=== PATIENT | female | born 1940 | race Hispanic/Latino ===

== ENCOUNTER 2018-07-24 07:13 | Outpatient (CLI) | payer MEDICARE ==
--- NOTE | 2018-07-24 14:27 | PET Report ---
PET/CT:07/24/18 07:13:00 CLINICAL: Pulmonary nodule RADIOPHARMACEUTICAL: 12.637mCi F18-FDG. COMPARISON: None. TECHNIQUE- Following intravenous injection of F-18 FDG and an approximately 60 minute uptake period, CT and PET images from the mid skull to the upper thighs were acquired with the patient in the fasted state. No contrast was administered. The CT protocol used for this PET CT study is designed for attenuation correction and anatomic localization of PET abnormalities. This certified medication technician CT is not desired to produce and cannot replace, [id number] diagnostic CT scans with specific imaging protocols for different body parts and indications. Plasma glucose at the time of this test: 99g/dl. The standardized uptake values (SUV) are normalized to patient body weight and indicate the highest activity concentration (SUV max) in a given disease site. FINDINGS: Brain--Physiologic FDG uptake in the visualized regions of the brain. Neck--Physiologic FDG uptake in mucosal structures. No mass or lymphadenopathy. Chest--Physiologic FDG uptake in mediastinal blood pool and myocardium. Lungs--No abnormal uptake. A 3 mm non-FDG avid right lower lobe noncalcified lung nodule and a 2 mm non-FDG avid right lower lobe noncalcified lung nodule. No other lung nodules. No mass. Mild emphysema. Pleura/pericardium--No abnormal uptake. Thoracic nodes--No abnormal uptake. Hepatobiliary--No abnormal uptake. Liver background SUV mean, as a reference for comparing FDG studies, is 4.7 . No liver mass. Spleen--No abnormal uptake. Pancreas--No abnormal uptake. Adrenal Glands--No abnormal uptake. Kidneys/Ureters/Bladder--No abnormal uptake. Abdominopelvic Nodes--No abnormal uptake. Bowel/Peritoneum/Mesentery--No abnormal uptake. Physiologic uptake in the cecum. Pelvic organs--No abnormal uptake. Bones/Soft Tissues--No abnormal uptake. IMPRESSION- Two tiny non-FDG avid noncalcified right lower lobe lung nodules which are probably benign. Recommend CT followup if there is a history of cancer or if there is a high risk of cancer.
== END 2018-07-24 07:14 | disposition home or self-care (01) ==
LOC: PET 07:13
PROVIDERS: ATTEND Internal Medicine
DX: R91.1 Solitary pulmonary nodule (principal); J43.9 Emphysema, unspecified; I10 Essential (primary) hypertension; E78.5 Hyperlipidemia, unspecified; E78.00 Pure hypercholesterolemia, unspecified; K21.9 Gastro-esophageal reflux disease without esophagitis; Z90.710 Acquired absence of both cervix and uterus
CPT/HCPCS: 78815; 82962; A9552

== ENCOUNTER 2018-12-23 09:45 | Day surgery (SDC) | payer MEDICARE ==
[~2018-12-23 09:45] MED LIST: SODIUM CHLORIDE 0.9% 1000 ML 1,000 ML IV SCH
--- NOTE | 2018-12-23 11:11 | Anesthesia Day of Surgery ---
Anesthesia Day of Surgery - Day of Surgery Patient Examined: Yes Patient H&P Reviewed: Yes Patient is NPO: Yes Beta Blockers: Yes
--- NOTE | 2018-12-23 11:11 | Anesthesia Consultation ---
Anesthesia Consult and Med Hx Date of service: 12/23/18 - Airway Anesthetic Teeth Evaluation: Edentulous ROM Head & Neck: Adequate Mental/Hyoid Distance: Inadequate Mallampati Class: Class I Intubation Access Assessment: Good - Pulmonary Exam CTA: Yes - Cardiac Exam Cardiac Exam: RRR - Pre-Operative Health Status ASA Pre-Surgery Classification: ASA3 Proposed Anesthetic Plan: MAC - Pulmonary Hx Smoking: Yes (30pk yr hx) COPD: Yes Home Oxygen Therapy: No - Cardiovascular System Hx Hypertension: Yes (1997) Hx Coronary Artery Disease: Yes (s/p stents; last saw cardiology 1 month ago) Hx Heart Attack/AMI: Yes (2010) Hx Angina: No Hx Percutaneous Transluminal Coronary Angioplasty (PTCA): Yes (x2 2010) Hx Cardia Arrhythmia: Yes (sick sinus syndrome) Hx Pacemaker: Yes - Central Nervous System CVA: No - Gastrointestinal Hx Gastroesophageal Reflux Disease: Yes - Endocrine Hx Renal Disease: No Hx Liver Disease: No Hx Insulin Dependent Diabetes: No Hx Non-Insulin Dependent Diabetes: No Hx Thyroid Disease: No - Other Systems Hx Obesity: No
[2018-12-23] MEDS ORDERED: PROPOFOL 200 MG/20 ML VIAL IV ONE (12:25)
[2018-12-23] MEDS ORDERED: LIDOCAINE (2%) 20 MG/1 ML VIAL 20 ML MDV INFILTRATI ONE (12:34)
[2018-12-23] MEDS ORDERED: WATER FOR IRRIG STERILE 250 ML BOTTLE IR ONE (12:34)
--- NOTE | 2018-12-23 13:11 | Short Stay Summary ---
Short Stay Documentation Date of service: 12/23/18 Narrative H&P: The patient presents for EGD with dilation for dysphagia and for surveillance colonoscopy due to history of polyps. Last colonoscopy about 5 years ago. - History Past Medical History: anemia, COPD, other (History of bradycardia requiring pacemaker, mild CKD) Past Surgical History: cholecystectomy, hysterectomy Social history: no significant social history, smoking - Allergies and Medications Current Medications: Allergies codeine Allergy (Verified 07/30/13 11:29) Itching hydrocodone bitartrate [From Vicodin] Allergy (Verified 08/25/13 08:35) Itching iodine Allergy (Verified 02/19/17 11:20) Itching iron Allergy (Verified 07/30/13 11:28) Itching Home Medications Medication Instructions Recorded Confirmed Last Taken Type Albuterol Sulfate [Ventolin HFA] 1 each IH QID 07/30/13 02/20/17 1 Day Ago History ~02/19/17 Aspirin EC [Halfprin EC] 81 mg PO DAILY 07/30/13 02/20/17 1 Day Ago History ~02/19/17 Carvedilol [Coreg] 6.25 mg PO BID 07/30/13 02/20/17 1 Day Ago History ~02/19/17 Fluticasone/Salmeterol [Advair 1 each PO BID 07/30/13 02/20/17 1 Day Ago History Diskus 250-50 mcg] ~02/19/17 Isosorbide Mononitrate [Isosorbide 30 mg PO DAILY 07/30/13 02/20/17 1 Day Ago History Mononitrate ER] ~02/19/17 Nitroglycerin [Nitrostat] 0.4 mg SL PRN PRN 07/30/13 02/20/17 03/16/13 History Rosuvastatin (Nf) [Crestor] 5 mg PO DAILY 07/30/13 02/20/17 1 Day Ago History ~02/19/17 Lisinopril [Zestril TAB] 20 mg PO QDAY #30 tablet 08/27/14 02/20/17 1 Day Ago Rx ~02/19/17 Active Medications Sodium Chloride (Nacl 0.9% 1000 Ml) 1,000 mls @ 50 mls/hr IV DIRECT JAC Last Admin: 12/23/18 11:36 Dose: 50 mls/hr Documented by: - Physical exam General appearance: no acute distress, well-nourished Integumentary: no rash, no growths, no abnormal pigmentation HEENT: Atraumatic, PERRLA, EOMI, Mucous membr. moist/pink Lungs: Clear to auscultation, Normal air movement Breasts: deferred Heart: Regular rate, Normal S1, Normal S2, No murmurs Gastrointestinal: normoactive bowel sounds, no tenderness, no distended, no masses, no guarding, no organomegaly Female Genitourinary: deferred Rectal Exam: normal exam-external/orifice, normal rectal tone, no mass Extremities: no ischemia, pulses intact, pulses symmetrical, No edema, normal temperature, normal color, Full ROM Neurological: Normal gait, Normal speech, Strength at 5/5 X4 ext, Normal tone, Sensation intact, Cranial nerves 3-12 NL - Brief post op/procedure progress note Date of procedure: 12/23/18 Findings: see dictations Estimated blood loss: none Pathology: list (rectal polyp) Specimen disposition: to lab Condition: stable - Disposition Condition at discharge: Good Disposition: DC-01 TO HOME OR SELFCARE - Discharge Diagnoses (1) Dysphagia Status: Acute (2) History of colon polyps Status: Acute Short Stay Discharge Plan Activity: other (No driving for 24 hours. ) Diet: other (Full liquids for 24 hours, then advance as tolerated.) Follow up with: RUDY MORA MD [Primary Care Provider] - 7 Days
--- NOTE | 2018-12-23 13:18 | Operative Report ---
Operative Report Operative Report: Date of procedure: 12/23/2018 Procedure: Esophagogastroduodenoscopy with balloon dilation of the esophagus to 16.5 mm Preprocedure diagnosis: Dysphagia to solid foods with a history of prior dilation of an esophageal stricture. Post procedure diagnosis: Long, smooth, benign-appearing stricture in the distal third of the esophagus. Endoscopist: Dr. Craven Anesthesia: Monitored anesthesia care per anesthesia department Medications: Propofol per anesthesia. Estimated blood loss: 0 After careful discussion of the nature and purpose of the procedure as well as details the technique risks benefits and alternatives consent was obtained. The patient was placed in the left lateral decubitus position and medicated per anesthesia. The tip of the Olympus video scope was passed per orum under direct vision into the esophagus and advanced into the stomach and descending duodenum. The descending duodenum the duodenal bulb and pylorus were symmetrical and normal. The scope was withdrawn into the stomach and the stomach then gently insufflated with air. The antrum was normal. The stomach was further insufflated and the scope was then retroflexed and partially withdrawn. The cardia, fundus, and body of the stomach were within normal limits and easily distensible.The scope was then withdrawn in the forward position. The esophagogastric junction was at 38 cm. There was a smooth stricture approximately 3-4 cm in length in the distal third of the esophagus. There was no resistance to passage of the scope initially. Dilation was performed with a balloon, initially at 15 mm followed by increasing the balloon size to 16.5 mm. A superficial rent be seen involving through the balloon and it was elected to conclude dilation at this level. The esophageal body was otherwise normal throughout. The procedure was was well tolerated and the patient was observed in recovery. Impressions: Smooths, benign-appearing stricture in the distal third of the esophagus. Stricture is likely reflux related. Status post balloon dilation to 16.5 mm. Controlled trauma of the esophagus was observed although no bleeding. Plan: Full liquid diet for 24 hours then advanced as tolerated. Repeat dilation as needed in the future. Acid suppression therapy. Office follow-up in 2-3 months. Electronically signed: Michael Craven MD
--- NOTE | 2018-12-23 13:20 | Operative Report ---
Operative Report Operative Report: Date of procedure: 12/23/2018 Preprocedure diagnosis: History of colon polyps Post procedure diagnosis: Left colon diverticulosis, no recurrent polyps. Procedure: Colonoscopy to the cecum Endoscopist: Dr. Craven Anesthesia: Monitored anesthesia care per anesthesia department Estimated blood loss: 0 Medications: Monitored anesthesia care. See separate report by anesthesia for details. After careful discussion of the nature and purpose of the procedure as well as details of the technique risks benefits and alternatives the patient gave consent. Please see recent history and physical from the office. The patient was placed in the left lateral decubitus position and medicated per anesthesia. A rectal exam was performed sphincter tone was normal there were no masses palpable. The Olympus colonoscope was passed transanally and advanced under continuous direct vision without difficulty to the cecum. The colon was well prepared. The cecum was normal. The ascending colon was normal and on forward and retroflexed views. The transverse colon was normal. There were scattered diverticula in the descending and sigmoid colon. The rectum was normal on forward and retroflexed views. The procedure was well-tolerated overall and the patient was observed in recovery. Conclusions: Diverticulosis of the left colon otherwise normal study with no recurrent polyps. Plan: Consider repeat colonoscopy in 5 years if the patient remains in good health. Signed electronically: Michael Craven M.D.
[2018-12-23 13:45] VITALS: BP 129/55
--- NOTE | 2018-12-23 13:46 | Post Anesthesia Evaluation ---
- Post Anesthesia Evaluation Patient Participated: Yes Airway Patent: Yes Stable Respiratory Function: Yes Nausea/Vomiting: No Temp > 96.8F: Yes Pain Manageable: Yes Adequeate Hydration: Yes Anesthesia Complications: No Block Receding Appropriately: Not Applicable Patient on Ventilator: No
== END 2018-12-23 09:46 | disposition home or self-care (01) ==
LOC: GIO 09:45
PROVIDERS: ATTEND Internal Medicine Gastroenterology
DX: Z12.11 Encounter for screening for malignant neoplasm of colon (principal); K62.1 Rectal polyp; K22.2 Esophageal obstruction; R13.10 Dysphagia, unspecified; J44.9 Chronic obstructive pulmonary disease, unspecified; I12.9 Hypertensive chronic kidney disease with stage 1 through stage 4 chronic kidney disease, or unspecified chronic kidney disease; K57.30 Diverticulosis of large intestine without perforation or abscess without bleeding; N18.9 Chronic kidney disease, unspecified; I25.10 Atherosclerotic heart disease of native coronary artery without angina pectoris; E78.00 Pure hypercholesterolemia, unspecified; F17.210 Nicotine dependence, cigarettes, uncomplicated; E78.5 Hyperlipidemia, unspecified; K21.9 Gastro-esophageal reflux disease without esophagitis; Z98.51 Tubal ligation status; Z87.442 Personal history of urinary calculi; Z98.890 Other specified postprocedural states; Z95.5 Presence of coronary angioplasty implant and graft; Z95.0 Presence of cardiac pacemaker; Z90.49 Acquired absence of other specified parts of digestive tract; Z90.710 Acquired absence of both cervix and uterus; Z88.5 Allergy status to narcotic agent; Z91.041 Radiographic dye allergy status; Z86.010 Personal history of colon polyps; Z98.41 Cataract extraction status, right eye; Z98.42 Cataract extraction status, left eye; Z79.899 Other long term (current) drug therapy
CPT/HCPCS: 43249; 45385; 82962; 88305; C1726; J2704; J7030

== ENCOUNTER 2019-03-27 21:50 | Inpatient (IN) | payer MEDICARE ==
--- NOTE | 2019-03-27 22:31 | Event Note ---
ED Screening Note Date of service: 03/27/19 Time: 22:28 ED Screening Note: 78 y/o female comes in for BEOT this evening about 630pm. Has a history of COPD. Does not use oxygen at home. Has a Headache. This initial assessment/diagnostic orders/clinical plan/treatment(s) is/are subject to change based on patients health status, clinical progression and re- assessment by fellow clinical providers in the ED. Further treatment and workup at subsequent clinical providers discretion. Patient/guardian urged not to elope from the ED as their condition may be serious if not clinically assessed and managed. Initial orders include:
--- NOTE | 2019-03-27 23:16 | XRay Report ---
CHEST 2 VIEWS INDICATION / CLINICAL INFORMATION: sob,cough and rales. COMPARISON: 02/19/2017 FINDINGS: SUPPORT DEVICES: Pacemaker appears unchanged HEART / MEDIASTINUM: Atherosclerotic calcifications are noted in the aortic arch. LUNGS / PLEURA: No significant pulmonary or pleural abnormality. .No pneumothorax. ADDITIONAL FINDINGS: No significant additional findings. IMPRESSION: 1. No acute findings. Signer Name: Cuba Caba MD Signed: 03/27/2019 11:12 PM Workstation Name: [id number]
[2019-03-27 23:33] LABS: Basophils % (Auto) 0.3 % (0.0-1.8); Eosinophils # (Auto) 0.3 K/mm3 (0.0-0.4); Eosinophils % (Auto) 2.5 % (0.0-4.3); Hematocrit 41.1 % (30.3-42.9); Hemoglobin 13.4 gm/dl (10.1-14.3); Lymphocytes # (Auto) 1.1 K/mm3 (1.2-5.4); Lymphocytes % (Auto) 11.1 % (13.4-35.0); Mean Corpuscular HGB Conc 33 % (30-34); Mean Corpuscular Volume 100 fl (79-97); Monocytes # (Auto) 0.5 K/mm3 (0.0-0.8); Monocytes % (Auto) 5.1 % (0.0-7.3); Platelet Count 275 K/mm3 (140-440); Red Blood Count 4.12 M/mm3 (3.65-5.03); Red Cell Distribution Width 14.7 % (13.2-15.2)
[2019-03-27 23:56] LABS: Albumin 4.6 g/dL (3.9-5); Calcium 10.8 mg/dL (8.4-10.2)
[2019-03-28] MEDS ORDERED: MAGNESIUM SULFATE 2 GM/50 ML BAG IV ONE (01:26)
[2019-03-28] MEDS ORDERED: methylPREDNISolone Sod Succinate 125 MG/2 ML INJ IV ONE (01:26)
[2019-03-28] MEDS ORDERED: IPRATROPIUM/ALBUTEROL SULFATE 3 ML AMPUL.NEB IH ONE (01:27)
--- NOTE | 2019-03-28 01:30 | Emergency Department Report ---
ED Shortness of Breath HPI - General Chief Complaint: Dyspnea/Respdistress Stated Complaint: BETO Time Seen by Provider: 03/28/19 01:15 Source: patient Mode of arrival: Ambulatory Limitations: No Limitations - History of Present Illness Initial Comments: Patient is a 78-year-old female that presents emergency room with shortness of breath x4 hours. Patient states she feels like her COPD is acting up. Patient states she is currently on antibiotics for a UTI. Patient states she has a past medical history of COPD, IA, hypertension, asthma, coronary stents, pacer. Patient states that her symptoms are worsening. Patient states she has been taking her home treatments and nothing is working. Patient states that her shortness of breath is better with rest and worse with exertion. Patient denies fever and chills. Patient denies chest pain. Patient denies nausea vomiting. MD Complaint: shortness of breath, cough -: Sudden Severity: severe Pain Scale: 0 Consistency: constant Improves With: oxygen, rest, bronchodilators Worsens With: exertion Known History Of: COPD, asthma Associated Symptoms: cough Treatments Prior to Arrival: bronchodilator - Related Data Home Oxygen Therapy: No Home Medications Medication Instructions Recorded Confirmed Last Taken Albuterol Sulfate [Ventolin HFA] 1 each IH QID 07/30/13 02/20/17 1 Day Ago ~02/19/17 Aspirin EC [Halfprin EC] 81 mg PO DAILY 07/30/13 02/20/17 1 Day Ago ~02/19/17 Fluticasone/Salmeterol [Advair 1 each PO BID 07/30/13 02/20/17 1 Day Ago Diskus 250-50 mcg] ~02/19/17 Isosorbide Mononitrate [Isosorbide 30 mg PO DAILY 07/30/13 02/20/17 1 Day Ago Mononitrate ER] ~02/19/17 Nitroglycerin [Nitrostat] 0.4 mg SL PRN PRN 07/30/13 02/20/17 03/16/13 Rosuvastatin (Nf) [Crestor] 5 mg PO DAILY 07/30/13 02/20/17 1 Day Ago ~02/19/17 carvediloL [Coreg] 6.25 mg PO BID 07/30/13 02/20/17 1 Day Ago ~02/19/17 Previous Rx's Medication Instructions Recorded Last Taken Type lisinopriL [Zestril TAB] 20 mg PO QDAY #30 tablet 08/27/14 1 Day Ago Rx ~02/19/17 Allergies Allergy/AdvReac Type Severity Reaction Status Date / Time codeine Allergy Itching Verified 07/30/13 11:29 hydrocodone bitartrate Allergy Itching Verified 08/25/13 08:35 [From Vicodin] iodine Allergy Itching Verified 02/19/17 11:20 iron Allergy Itching Verified 07/30/13 11:28 ED Review of Systems ROS: Stated complaint: BETO Other details as noted in HPI Constitutional: denies: chills, fever Eyes: denies: eye pain, eye discharge, vision change ENT: denies: ear pain, throat pain Respiratory: cough, shortness of breath, SOB with exertion, SOB at rest, wheezing Cardiovascular: denies: chest pain, palpitations Endocrine: no symptoms reported Gastrointestinal: denies: abdominal pain, nausea, diarrhea Genitourinary: denies: urgency, dysuria, discharge Musculoskeletal: denies: back pain, joint swelling, arthralgia Skin: denies: rash, lesions Neurological: denies: headache, weakness, paresthesias Psychiatric: denies: anxiety, depression Hematological/Lymphatic: denies: easy bleeding, easy bruising ED Past Medical Hx - Past Medical History Previous Medical History?: Yes Hx Hypertension: Yes (1997) Hx Heart Attack/AMI: Yes (2010) Hx Liver Disease: No Hx Renal Disease: No Hx Kidney Stones: Yes Hx Asthma: Yes Hx COPD: Yes Additional medical history: high cholosterol - Surgical History Hx Coronary Stent: Yes (X 2 2011) Hx Pacemaker: Yes Hx Cholecystectomy: Yes Hx Appendectomy: Yes Additional Surgical History: pacemaker 2012, stents x 2 10/2010. eye implants - Social History Smoking Status: Current Every Day Smoker Substance Use Type: None - Medications Home Medications: Home Medications Medication Instructions Recorded Confirmed Last Taken Type Albuterol Sulfate [Ventolin HFA] 1 each IH QID 07/30/13 02/20/17 1 Day Ago History ~02/19/17 Aspirin EC [Halfprin EC] 81 mg PO DAILY 07/30/13 02/20/17 1 Day Ago History ~02/19/17 Fluticasone/Salmeterol [Advair 1 each PO BID 07/30/13 02/20/17 1 Day Ago History Diskus 250-50 mcg] ~02/19/17 Isosorbide Mononitrate [Isosorbide 30 mg PO DAILY 07/30/13 02/20/17 1 Day Ago History Mononitrate ER] ~02/19/17 Nitroglycerin [Nitrostat] 0.4 mg SL PRN PRN 07/30/13 02/20/17 03/16/13 History Rosuvastatin (Nf) [Crestor] 5 mg PO DAILY 07/30/13 02/20/17 1 Day Ago History ~02/19/17 carvediloL [Coreg] 6.25 mg PO BID 07/30/13 02/20/17 1 Day Ago History ~02/19/17 lisinopriL [Zestril TAB] 20 mg PO QDAY #30 tablet 08/27/14 02/20/17 1 Day Ago Rx ~02/19/17 ED Physical Exam - General Limitations: No Limitations General appearance: alert, in distress - Head Head exam: Present: atraumatic, normocephalic - Eye Eye exam: Present: normal appearance - ENT ENT exam: Present: mucous membranes moist - Neck Neck exam: Present: normal inspection - Respiratory Respiratory exam: Present: respiratory distress, wheezes, decreased breath sounds - Cardiovascular Cardiovascular Exam: Present: regular rate, normal rhythm. Absent: systolic murmur, diastolic murmur, rubs, gallop - GI/Abdominal GI/Abdominal exam: Present: soft, normal bowel sounds. Absent: distended, tenderness, guarding - Rectal Rectal exam: Present: deferred - Extremities Exam Extremities exam: Present: normal inspection - Back Exam Back exam: Present: normal inspection - Neurological Exam Neurological exam: Present: alert, oriented X3 - Psychiatric Psychiatric exam: Present: normal affect, normal mood - Skin Skin exam: Present: warm, dry, intact, normal color. Absent: rash ED Course Vital Signs 03/27/19 03/27/19 03/27/19 22:16 22:17 22:19 Temperature 98.5 F Pulse Rate 65 65 65 Pulse Rate [ Anterior] Respiratory 16 Rate Respiratory Rate [Anterior] Blood Pressure 192/75 O2 Sat by Pulse 89 90 91 Oximetry 03/28/19 03/28/19 01:46 02:13 Temperature Pulse Rate 67 Pulse Rate [ 77 Anterior] Respiratory 14 Rate Respiratory 17 Rate [Anterior] Blood Pressure O2 Sat by Pulse Oximetry - Reevaluation(s) Reevaluation #1: Initial evaluation done. 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 Patient will be given DuoNeb, Solu-Medrol, magnesium run. 03/28/19 01:15 Reevaluation #2: I discussed all results with patient. I discussed plan of care with patient. Patient agrees with plan of care and admission. Patient to be admitted to the hospitalist service. Patient still wheezing and hypoxic. 03/28/19 02:41 - Consultations Consultation #1: Hospitalist consulted for admission. Hospitalist admit patient. 03/28/19 02:41 ED Medical Decision Making - Lab Data Result diagrams: 03/27/19 23:02 03/27/19 23:02 - Radiology Data Radiology results: report reviewed, image reviewed No acute findings on x-ray - Medical Decision Making Patient is a 78-year-old female that presents emergency room for shortness of breath and difficulty in breathing. Patient clinical findings consistent with COPD exacerbation. Patient required multiple medications and continues to w heeze and be hypoxic. Patient admitted to the hospitalist service for further evaluation and treatment. Patient given magnesium, Solu-Medrol and duo nebs. Patient placed on oxygen for hypoxia. Patient's chest x-ray negative. Patient's labs unremarkable. - Differential Diagnosis COPD, COPD exacerbation, hypoxia, shortness of breath, BETO Critical Care Time: Yes Critical care time in (mins) excluding proc time.: 35 Critical care attestation.: If time is entered above; I have spent that time in minutes in the direct care of this critically ill patient, excluding procedure time. Critical Care Time: 35 minutes ED Disposition Clinical Impression: Hypoxia, SOB (shortness of breath), COPD exacerbation Disposition: OP ADMIT IP TO THIS HOSP Is pt being admited?: Yes Does the pt Need Aspirin: No Condition: Critical Time of Disposition: 02:44
[2019-03-28] MEDS ORDERED: ACETAMINOPHEN 325 MG TAB PO PRN (03:39)
[2019-03-28] MEDS ORDERED: ONDANSETRON 4 MG/2 ML INJ IV PRN (03:39)
[2019-03-28] MEDS ORDERED: SODIUM CHLORIDE 0.9% 1000 ML 1,000 ML IV SCH (03:45)
--- NOTE | 2019-03-28 03:50 | History and Physical Report ---
History of Present Illness Date of examination: 03/28/19 Chief complaint: Worsening shortness of breath since yesterday History of present illness: Baylee Norton is a 78-year-old female that presents to the emergency room with shortness of breath last night. Patient states she feels like her COPD is acting up. Patient states she is currently on antibiotics for a UTI (states she took 1 tablet so far as this was prescribed by Dr. Alfred Poe only yesterday). Patient states she has a past medical history of COPD, NC, hypertension, asthma, coronary stents, PPM. Patient states that her symptoms are worsening. she has been taking her home neb. treatments and nothing is working. Patient states that her shortness of breath is better with rest and worse with exertion. Patient denies fever and chills. Patient denies chest pain. Patient denies nausea vomiting. She does complain of urinary frequency and dysuria and chronic lower back pain but denies any flank pain. patient is being admitted for further management of her COPD exacerbation Past History Past Medical History: CAD, COPD, hypertension, hyperlipidemia, other (Chronic lower back pain) Past Surgical History: appendectomy, cholecystectomy, cataract removal, PTCA Social history: smoking Family history: CAD, diabetes, hypertension Medications and Allergies Allergies Allergy/AdvReac Type Severity Reaction Status Date / Time codeine Allergy Itching Verified 07/30/13 11:29 hydrocodone bitartrate Allergy Itching Verified 08/25/13 08:35 [From Vicodin] iodine Allergy Itching Verified 02/19/17 11:20 iron Allergy Itching Verified 07/30/13 11:28 Home Medications Medication Instructions Recorded Confirmed Last Taken Type Albuterol Sulfate [Ventolin HFA] 1 each IH QID 07/30/13 02/20/17 1 Day Ago History ~02/19/17 Aspirin EC [Halfprin EC] 81 mg PO DAILY 07/30/13 02/20/17 1 Day Ago History ~02/19/17 Fluticasone/Salmeterol [Advair 1 each PO BID 07/30/13 02/20/17 1 Day Ago History Diskus 250-50 mcg] ~02/19/17 Isosorbide Mononitrate [Isosorbide 30 mg PO DAILY 07/30/13 02/20/17 1 Day Ago History Mononitrate ER] ~02/19/17 Nitroglycerin [Nitrostat] 0.4 mg SL PRN PRN 07/30/13 02/20/17 03/16/13 History Rosuvastatin (Nf) [Crestor] 5 mg PO DAILY 07/30/13 02/20/17 1 Day Ago History ~02/19/17 carvediloL [Coreg] 6.25 mg PO BID 07/30/13 02/20/17 1 Day Ago History ~02/19/17 lisinopriL [Zestril TAB] 20 mg PO QDAY #30 tablet 08/27/14 02/20/17 1 Day Ago Rx ~02/19/17 Active Meds: Active Medications Acetaminophen (Tylenol) 650 mg PO Q4H PRN PRN Reason: Pain MILD(1-3)/Fever >100.5/ROTH Albuterol/Ipratropium (Duoneb *Not For Prn Use*) 1 ampul IH Q6HRT [facility] Aspirin (Halfprin Ec) 81 mg PO DAILY [facility] Atorvastatin Calcium (Lipitor) 10 mg PO QHS [facility] Budesonide (Pulmicort) 0.5 mg IH Q12HRT [facility] Carvedilol (Coreg) 6.25 mg PO BID [facility] Famotidine (Pepcid) 20 mg PO BID [facility] Heparin Sodium (Porcine) (Heparin) 5,000 unit SUB-Q Q8HR [facility] Hydralazine HCl (Apresoline) 10 mg IV Q6H PRN PRN Reason: Hypertension Sodium Chloride (Nacl 0.9% 1000 Ml) 1,000 mls @ 75 mls/hr IV DIRECT [facility] Methylprednisolone Sodium Succinate 80 mg/ Sodium Chloride 100 mls @ 200 mls/hr IV Q8H [facility] Ceftriaxone Sodium (Rocephin/Ns 1 Gm/50 Ml) 1 gm in 50 mls @ 100 mls/hr IV Q24HR [facility]; Protocol Isosorbide Mononitrate (Imdur) 30 mg PO DAILY [facility] Lisinopril (Zestril) 20 mg PO QDAY [facility] Ondansetron HCl (Zofran) 4 mg IV Q8H PRN PRN Reason: Nausea And Vomiting Sodium Chloride (Sodium Chloride Flush Syringe 10 Ml) 10 ml IV BID [facility] Sodium Chloride (Sodium Chloride Flush Syringe 10 Ml) 10 ml IV PRN PRN PRN Reason: LINE FLUSH Review of Systems All systems: negative (12 point review of systems is essentially unremarkable except as stated above in the history of present illness) Exam - Constitutional Vitals: Temp Pulse Resp BP Pulse Ox 98.5 F 77 17 192/75 91 03/27/19 22:16 03/28/19 02:13 03/28/19 02:13 03/27/19 22:16 03/27/19 22:19 General appearance: Present: no acute distress - EENT Eyes: Present: PERRL, EOM intact ENT: hearing intact, clear oral mucosa, no thrush - Neck Neck: Present: supple, normal ROM. Absent: masses or JVD - Respiratory Respiratory effort: normal Respiratory: bilateral: diminished - Cardiovascular Rhythm: regular Heart Sounds: Present: S1 & S2 - Extremities Extremity abnormal: edema (Trace bilateral leg edema) Peripheral Pulses: within normal limits - Abdominal General gastrointestinal: Present: soft, non-tender. Absent: hepatomegaly, splenomegaly Female genitourinary: Present: deferred - Rectal Rectal Exam: deferred - Integumentary Integumentary: Present: clear - Musculoskeletal Musculoskeletal: strength equal bilaterally - Psychiatric Psychiatric: appropriate mood/affect - Neurologic Neurologic: CNII-XII intact, no focal deficits Results - Labs CBC & Chem 7: 03/27/19 23:02 03/27/19 23:02 Labs: Abnormal lab results 03/27/19 03/27/19 Range/Units 23:02 23:02 MCV 100 H (79-97) fl MCH 33 H (28-32) pg Lymph % (Auto) 11.1 L (13.4-35.0) % Lymph # 1.1 L (1.2-5.4) K/mm3 Seg Neutrophils % 81.0 H (40.0-70.0) % Seg Neutrophils # 8.3 H (1.8-7.7) K/mm3 Glucose 104 H (65-100) mg/dL Calcium 10.8 H (8.4-10.2) mg/dL Assessment and Plan - Patient Problems (1) COPD exacerbation Current Visit: Yes Status: Acute Plan to address problem: Start the patient on aggressive neb treatments with DuoNeb solution, Brovana and Pulmicort solutions and IV steroids We will also start the patient on empiric antibiotic with Rocephin as the patient complains of cough and also she gives history of being diagnosed with [place] I Oxygen supplements. Oxygen saturation is 89 to 91% (2) Hypertensive urgency Current Visit: Yes Status: Acute Plan to address problem: Resume home medications IV hydralazine as needed (3) Coronary artery disease Current Visit: Yes Status: Chronic Qualifiers: Coronary Disease-Associated Artery/Lesion type: [place] artery [place] vs. transplanted heart: [place] heart Associated angina: without angina Qualified Code(s): I25.10 - Atherosclerotic heart disease of [place] coronary artery without angina pectoris Plan to address problem: Continue home medications including beta-corine and Imdur Continue aspirin (4) Hypercalcemia Current Visit: No Status: Acute Plan to address problem: We will start the patient on IV fluids with normal saline and recheck calcium in a.m. Consider hematology consult if hypercalcemia is persistent (5) Hyperlipidemia Current Visit: No Status: Chronic Plan to address problem: Continue statin (6) Tobacco abuse Current Visit: No Status: Chronic Plan to address problem: Smoking cessation counseling was done
[2019-03-28] MEDS: methylPREDNISolone Sod Suc 80 MG in SODIUM CHLORIDE 0.9% 100 ML IV SCH ×2 (05:00→12:45)
[2019-03-28] MEDS ORDERED: HEPARIN 5,000 UNIT/1 ML VIAL ONE (06:13)
[2019-03-28] MEDS ORDERED: methylPREDNISolone Sod Succinate 40 MG/1 ML INJ ONE (06:13)
[2019-03-28] MEDS: HEPARIN 5,000 UNIT/1 ML VIAL SUB-Q SCH ×3 (06:19→21:12)
[2019-03-28] MEDS: BUDESONIDE 0.5 MG/2 ML NEBU IH SCH ×2 (09:35→20:28)
[2019-03-28] MEDS: IPRATROPIUM/ALBUTEROL SULFATE 3 ML AMPUL.NEB IH SCH ×3 (09:35→20:28)
[2019-03-28] MEDS ORDERED: NON-FORMULARY EACH (Rosuvastatin (Nf) 5 MG) PO SCH (10:00)
[2019-03-28] MEDS: ASPIRIN EC 81 MG TAB PO SCH (10:10)
[2019-03-28] MEDS: carvediloL 6.25 MG TAB PO SCH ×2 (10:12→21:14)
[2019-03-28] MEDS: LISINOPRIL 20 MG TAB PO SCH (10:13)
[2019-03-28] MEDS: FAMOTIDINE 20 MG TAB PO SCH ×2 (10:13→21:14)
[2019-03-28] MEDS: cefTRIAXone/NS 1 GM/50 ML 1 GM/50 ML BAG IV SCH (12:20)
[2019-03-28] MEDS ORDERED: SALMETEROL INHALATION SCH (13:00)
[2019-03-28] MEDS ORDERED: FLUTICASONE INHALATION SCH (13:00)
--- NOTE | 2019-03-28 13:00 | Event Note ---
Date: 03/28/19 78-year-old female patient with multiple medical problems was admitted through emergency room with worsening shortness of breath, acute exacerbation of COPD, Hypertensive urgency. Patient seen and examined at bedside this afternoon Patient's chart and other records reviewed Patient feels slightly better since admission, still has slight shortness of breath Vital signs reviewed, agree with the current management Closely monitor and adjust the management as needed Of care reviewed with the patient and her nurse
[2019-03-28] MEDS: hydrALAZINE 25 MG TAB PO SCH ×2 (13:22→21:12)
[2019-03-28] MEDS ORDERED: ALBUTEROL 2.5 MG/3 ML NEBU IH SCH (13:45)
[2019-03-28] MEDS ORDERED: ALBUTEROL 8.5 GM INHALATION IH SCH (14:00)
[2019-03-28] MEDS ORDERED: hydrALAZINE 25 MG TAB PO SCH (14:00)
[2019-03-28] MEDS ORDERED: BUDESONIDE 0.5 MG/2 ML NEBU IH SCH (20:00)
[2019-03-28] MEDS: ARFORMOTEROL 15 MCG/2 ML NEBU IH SCH (20:28)
[2019-03-28 20:34] LABS: Bilirubin,Urine NEG (Negative); Blood,Urine SM (Negative); Color,Urine Yellow (Yellow); Hyaline Casts,Urine 1 /LPF; Protein,Urine <15 mg/dL mg/dL (Negative); Urobilinogen,Urine < 2.0 mg/dL (<2.0); WBC,Urine < 1.0 /HPF (0.0-6.0)
[2019-03-28] MEDS: methylPREDNISolone Sod Succinate 125 MG/2 ML INJ IV SCH (21:12)
[2019-03-29] MEDS: IPRATROPIUM/ALBUTEROL SULFATE 3 ML AMPUL.NEB IH SCH ×4 (02:30→21:13)
[2019-03-29] MEDS: hydrALAZINE 20 MG/1 ML INJ IV PRN (05:49)
[2019-03-29] MEDS: methylPREDNISolone Sod Succinate 125 MG/2 ML INJ IV SCH ×3 (05:50→22:02)
[2019-03-29] MEDS: HEPARIN 5,000 UNIT/1 ML VIAL SUB-Q SCH ×3 (05:51→22:00)
[2019-03-29 06:07] LABS: BUN/Creatinine Ratio 34; Blood Urea Nitrogen 27 mg/dL (7-17); Calcium 9.9 mg/dL (8.4-10.2); Hemolysis Index 0
[2019-03-29] MEDS: ARFORMOTEROL 15 MCG/2 ML NEBU IH SCH ×2 (07:51→21:12)
[2019-03-29] MEDS: BUDESONIDE 0.5 MG/2 ML NEBU IH SCH ×2 (07:52→21:12)
[2019-03-29] MEDS: carvediloL 6.25 MG TAB PO SCH ×2 (10:37→22:01)
[2019-03-29] MEDS: cefTRIAXone/NS 1 GM/50 ML 1 GM/50 ML BAG IV SCH (10:38)
[2019-03-29] MEDS: LISINOPRIL 20 MG TAB PO SCH (10:38)
[2019-03-29] MEDS: ASPIRIN EC 81 MG TAB PO SCH (10:38)
[2019-03-29] MEDS: FAMOTIDINE 20 MG TAB PO SCH ×2 (10:39→22:00)
[2019-03-29] MEDS: hydrALAZINE 25 MG TAB PO SCH ×3 (10:44→20:42)
--- NOTE | 2019-03-29 12:44 | Progress Note ---
Assessment and Plan Assessment and plan: (1) COPD exacerbation Current Visit: Yes Status: Acute Plan to address problem: Start the patient on aggressive neb treatments with DuoNeb solution, Brovana and Pulmicort solutions and IV steroids We will also start the patient on empiric antibiotic with Rocephin as the patient complains of cough and also she gives history of being diagnosed with UTI Oxygen supplements. Oxygen saturation is 89 to 91% (2) Hypertensive urgency Current Visit: Yes Status: Acute Plan to address problem: Resume home medications IV hydralazine as needed (3) Coronary artery disease Current Visit: Yes Status: Chronic Qualifiers: Coronary Disease-Associated Artery/Lesion type: [place] artery [place] vs. transplanted heart: [place] heart Associated angina: without angina Qualified Code(s): I25.10 - Atherosclerotic heart disease of [place] coronary artery without angina pectoris Plan to address problem: Continue home medications including beta-corine and Imdur Continue aspirin (4) Hypercalcemia Current Visit: No Status: Acute Plan to address problem: We will start the patient on IV fluids with normal saline and recheck calcium in a.m. Consider hematology consult if hypercalcemia is persistent (5) Hyperlipidemia Current Visit: No Status: Chronic Plan to address problem: Continue statin (6) Tobacco abuse Current Visit: No Status: Chronic Plan to address problem: Smoking cessation counseling was done History Interval history: Patient seen and examined , patient's chart and other records reviewed Complains of congestion and cough Shortness of breath significantly improved Labile blood pressures Alert awake oriented Mild distress Vital signs noted Hospitalist Physical - Constitutional Vitals: Temp Pulse Resp BP Pulse Ox 98.3 F 79 18 156/52 95 03/29/19 07:35 03/29/19 10:00 03/29/19 07:52 03/29/19 07:35 03/29/19 07:52 General appearance: Present: mild distress, obese, other (Chest congestion) - EENT Eyes: Present: PERRL, EOM intact - Neck Neck: Present: supple, normal ROM - Respiratory Respiratory effort: normal Respiratory: bilateral: diminished, rales, wheezing - Cardiovascular Rhythm: regular Heart Sounds: Present: S1 & S2 - Extremities Extremities: no ischemia Extremity abnormal: edema - Abdominal General gastrointestinal: soft, non-tender, non-distended, normal bowel sounds - Integumentary Integumentary: Present: clear, warm - Psychiatric Psychiatric: appropriate mood/affect, cooperative - Neurologic Neurologic: moves all extremities Results - Labs CBC & Chem 7: 03/27/19 23:02 03/29/19 05:16 Labs: Laboratory Last Values WBC 10.3 K/mm3 (4.5-11.0) 03/27/19 23:02 RBC 4.12 M/mm3 (3.65-5.03) 03/27/19 23:02 Hgb 13.4 gm/dl (10.1-14.3) 03/27/19 23:02 Hct 41.1 % (30.3-42.9) 03/27/19 23:02 MCV 100 fl (79-97) H 03/27/19 23:02 MCH 33 pg (28-32) H 03/27/19 23:02 MCHC 33 % (30-34) 03/27/19 23:02 RDW 14.7 % (13.2-15.2) 03/27/19 23:02 Plt Count 275 K/mm3 (140-440) 03/27/19 23:02 Lymph % (Auto) 11.1 % (13.4-35.0) L 03/27/19 23:02 [place] % (Auto) 5.1 % (0.0-7.3) 03/27/19 23:02 Eos % (Auto) 2.5 % (0.0-4.3) 03/27/19 23:02 Baso % (Auto) 0.3 % (0.0-1.8) 03/27/19 23:02 Lymph # 1.1 K/mm3 (1.2-5.4) L 03/27/19 23:02 [place] # 0.5 K/mm3 (0.0-0.8) 03/27/19 23:02 Eos # 0.3 K/mm3 (0.0-0.4) 03/27/19 23:02 Baso # 0.0 K/mm3 (0.0-0.1) 03/27/19 23:02 Seg Neutrophils % 81.0 % (40.0-70.0) H 03/27/19 23:02 Seg Neutrophils # 8.3 K/mm3 (1.8-7.7) H 03/27/19 23:02 Sodium 145 mmol/L (137-145) 03/29/19 05:16 Potassium 4.6 mmol/L (3.6-5.0) 03/29/19 05:16 Chloride 109.7 mmol/L (98-107) H 03/29/19 05:16 Carbon Dioxide 24 mmol/L (22-30) 03/29/19 05:16 Anion Gap 16 mmol/L 03/29/19 05:16 BUN 27 mg/dL (7-17) H 03/29/19 05:16 Creatinine 0.8 mg/dL (0.7-1.2) 03/29/19 05:16 Estimated GFR > 60 ml/min 03/29/19 05:16 BUN/Creatinine Ratio 34 % 03/29/19 05:16 Glucose 141 mg/dL (65-100) H 03/29/19 05:16 Calcium 9.9 mg/dL (8.4-10.2) 03/29/19 05:16 Total Bilirubin 0.30 mg/dL (0.1-1.2) 03/27/19 23:02 AST 19 units/L (5-40) 03/27/19 23:02 ALT 10 units/L (7-56) 03/27/19 23:02 Alkaline Phosphatase 72 units/L (35-129) 03/27/19 23:02 Total Protein 7.4 g/dL (6.3-8.2) 03/27/19 23:02 Albumin 4.6 g/dL (3.9-5) 03/27/19 23:02 Albumin/Globulin Ratio 1.6 % 03/27/19 23:02 Urine Color Yellow (Yellow) 03/28/19 20: Urine Turbidity Clear (Clear) 03/28/19 20:23 Urine pH 5.0 (5.0-7.0) 03/28/19 20:23 Ur Specific Counselor 1.008 (1.003-1.030) 03/28/19 20: Urine Protein <15 mg/dl mg/dL (Negative) 03/28/19 20: Urine Glucose (UA) Neg mg/dL (Negative) 03/28/19 20:23 Urine Ketones Neg mg/dL (Negative) 03/28/19 20:23 Urine Blood Sm (Negative) 03/28/19 20: Urine Nitrite Neg (Negative) 03/28/19 20:23 Urine Bilirubin Neg (Negative) 03/28/19 20:23 Urine Urobilinogen < 2.0 mg/dL (<2.0) 03/28/19 20:23 Ur Leukocyte Esterase Neg (Negative) 03/28/19 20:23 Urine WBC (Auto) < 1.0 /HPF (0.0-6.0) 03/28/19 20:23 Urine RBC (Auto) 3.0 /HPF (0.0-6.0) 03/28/19 20:23 U Epithel Cells (Auto) 1.0 /HPF (0-13.0) 03/28/19 20:23 Hyaline Casts 1 /LPF 03/28/19 20:23 Active Medications - Current Medications Current Medications: Generic Name Dose Route Start Last Admin Trade Name Freq PRN Reason Stop Dose Admin Acetaminophen 650 mg 03/28/19 03:39 Tylenol PO Q4H PRN Pain MILD(1-3)/Fever >100.5/ROTH Albuterol 2.5 mg 03/28/19 13:45 Proventil IH PRN [facility] Albuterol/Ipratropium 1 ampul 03/28/19 08:00 03/29/19 07:52 Duoneb *Not For Prn Use* IH 1 ampul Q6HRT [facility] Administration Arformoterol Tartrate 15 mcg 03/28/19 20:00 03/29/19 07:51 Brovana Nebu IH 15 mcg Q12HRT [facility] Administration Aspirin 81 mg 03/28/19 10:00 03/29/19 10:38 Halfprin Ec PO 81 mg DAILY [facility] Administration Atorvastatin Calcium 10 mg 03/28/19 22:00 03/28/19 21:14 Lipitor PO 10 mg QHS [facility]AC Administration Budesonide 0.5 mg 03/28/19 08:00 03/29/19 07:52 Pulmicort IH 0.5 mg Q12HRT JAC Administration Carvedilol 6.25 mg 03/28/19 10:00 03/29/19 10:37 Coreg PO 6.25 mg BID JAC Administration Famotidine 20 mg 03/28/19 10:00 03/29/19 10:39 Pepcid PO 20 mg BID JAC Administration Heparin Sodium (Porcine) 5,000 unit 03/28/19 06:00 03/29/19 05:51 Heparin SUB-Q 5,000 unit Q8HR [facility] Administration Hydralazine HCl 10 mg 03/28/19 03:37 03/29/19 05:49 Apresoline IV 10 mg Q6H PRN Administration Hypertension Hydralazine HCl 50 mg 03/28/19 14:00 03/29/19 10:44 Apresoline PO 50 mg TID [facility]AC Administration Ceftriaxone Sodium 1 gm in 50 mls @ 100 mls/hr 03/28/19 10:00 03/29/19 10:38 Rocephin/Ns 1 Gm/50 Ml IV 100 mls/hr Q24HR [facility]AC Administration Protocol Isosorbide Mononitrate 30 mg 03/28/19 10:00 03/29/19 10:38 Imdur PO 30 mg DAILY [facility] Administration Lisinopril 20 mg 03/28/19 10:00 03/29/19 10:38 Zestril PO 20 mg QDAY [facility]AC Administration Methylprednisolone Sodium Succinate 80 mg 03/28/19 22:00 03/29/19 05:50 Solu-Medrol IV 80 mg Q8HR [facility]AC Administration Ondansetron HCl 4 mg 03/28/19 03:39 Zofran IV Q8H PRN Nausea And Vomiting Sodium Chloride 10 ml 03/28/19 10:00 03/29/19 10:39 Sodium Chloride Flush Syringe 10 Ml IV 10 ml BID [facility]AC Administration Sodium Chloride 10 ml 03/28/19 03:39 03/29/19 05:53 Sodium Chloride Flush Syringe 10 Ml IV 10 ml PRN PRN Administration LINE FLUSH
[2019-03-29] MEDS ORDERED: FUROSEMIDE 40 MG/4 ML INJ IV ONE (12:47)
[2019-03-29] MEDS ORDERED: ALBUTEROL 8.5 GM INHALATION IH PRN (12:48)
[2019-03-29] MEDS ORDERED: ALBUTEROL 2.5 MG/3 ML NEBU IH PRN (14:00)
[2019-03-29] MEDS ORDERED: CETIRIZINE 10 MG TAB PO ONE (14:00)
[2019-03-30] MEDS: hydrALAZINE 20 MG/1 ML INJ IV PRN (01:39)
[2019-03-30] MEDS: methylPREDNISolone Sod Succinate 125 MG/2 ML INJ IV SCH ×2 (05:46→13:05)
[2019-03-30] MEDS: HEPARIN 5,000 UNIT/1 ML VIAL SUB-Q SCH (05:46)
[2019-03-30] MEDS: hydrALAZINE 25 MG TAB PO SCH ×2 (08:20→13:05)
[2019-03-30] MEDS: IPRATROPIUM/ALBUTEROL SULFATE 3 ML AMPUL.NEB IH SCH ×2 (09:02→13:34)
[2019-03-30] MEDS: BUDESONIDE 0.5 MG/2 ML NEBU IH SCH (09:02)
[2019-03-30] MEDS: ARFORMOTEROL 15 MCG/2 ML NEBU IH SCH (09:02)
[2019-03-30] MEDS: carvediloL 6.25 MG TAB PO SCH (09:56)
[2019-03-30] MEDS: LISINOPRIL 20 MG TAB PO SCH (09:57)
[2019-03-30] MEDS: cefTRIAXone/NS 1 GM/50 ML 1 GM/50 ML BAG IV SCH (09:57)
[2019-03-30] MEDS: ASPIRIN EC 81 MG TAB PO SCH (09:57)
[2019-03-30] MEDS: FAMOTIDINE 20 MG TAB PO SCH (09:57)
[2019-03-30] MEDS ORDERED: CETIRIZINE 10 MG TAB PO SCH (10:00)
--- NOTE | 2019-03-30 13:03 | Discharge Summary ---
Providers - Providers Date of Admission: 03/28/19 04:38 Date of discharge: 03/30/19 Attending physician: SADIA MATHUR [facility] Condition: Fair Disposition: DC/[place]-06 HOME [facility] Time spent for discharge: 32 min Core Measure Documentation - Palliative Care Palliative Care/ Comfort Measures: Not Applicable - Core Measures Any of the following diagnoses?: none Exam - Constitutional Vitals: Temp Pulse Resp BP Pulse Ox 98.7 F 70 20 147/56 91 03/30/19 08:57 03/30/19 09:57 03/30/19 09:39 03/30/19 09:57 03/30/19 09:02 General appearance: Present: no acute distress, well-nourished - EENT Eyes: Present: PERRL, EOM intact - Neck Neck: Present: supple, normal ROM - Respiratory Respiratory effort: normal Respiratory: bilateral: diminished, negative: rales, rhonchi, wheezing - Cardiovascular Rhythm: regular Heart Sounds: Present: S1 & S2 - Extremities Extremities: no ischemia, No edema - Abdominal General gastrointestinal: Present: soft, non-tender, non-distended, normal bowel sounds - Integumentary Integumentary: Present: clear, warm - Musculoskeletal Musculoskeletal: strength equal bilaterally - Psychiatric Psychiatric: appropriate mood/affect, cooperative - Neurologic Neurologic: CNII-XII intact, moves all extremities Plan Activity: advance as tolerated, fall precautions Diet: other (cardiac diet) Additional Instructions: Fall precautions. If you have severe shortness of breath or chest pain, contact MD or go to emergency room Follow up with: HENRIETTA SANTOS MD [Primary Care Provider] - 3-5 Days Prescriptions: Famotidine [Pepcid] 20 mg PO BID #20 tablet Benzonatate [Tessalon Perles] 100 mg PO Q8HR PRN #20 capsule PRN Reason: Cough Azithromycin [Zithromax Z-CRISTA] 0 mg PO DAILY #1 pack Cetirizine HCl [ZyrTEC 10mg cap] 10 mg PO DAILY PRN #10 capsule PRN Reason: Congestion
[2019-03-30 13:06] VITALS: BP 120/46
== END 2019-03-30 15:46 | disposition home or self-care (01) | DRG 191 ==
LOC: ED 21:50 → 4A 03-28 04:38
PROVIDERS: ADMIT Internal Medicine; ATTEND Internal Medicine
DX: J44.1 Chronic obstructive pulmonary disease with (acute) exacerbation (principal); N39.0 Urinary tract infection, site not specified; I16.0 Hypertensive urgency; I25.10 Atherosclerotic heart disease of native coronary artery without angina pectoris; E83.52 Hypercalcemia; E78.5 Hyperlipidemia, unspecified; F17.200 Nicotine dependence, unspecified, uncomplicated; I10 Essential (primary) hypertension; G89.29 Other chronic pain; M54.5 Low back pain; Z90.49 Acquired absence of other specified parts of digestive tract; Z71.6 Tobacco abuse counseling; I25.2 Old myocardial infarction; Z95.5 Presence of coronary angioplasty implant and graft; Z95.0 Presence of cardiac pacemaker; Z98.49 Cataract extraction status, unspecified eye; Z82.49 Family history of ischemic heart disease and other diseases of the circulatory system; Z83.3 Family history of diabetes mellitus; Z88.5 Allergy status to narcotic agent; Z91.041 Radiographic dye allergy status; Z79.899 Other long term (current) drug therapy; Z79.82 Long term (current) use of aspirin; Z87.442 Personal history of urinary calculi
CPT/HCPCS: 36415; 71046; 80048; 80053; 81001; 82962; 85025; 94640; 94644; 94760; 96374; 96375; G0378; A9270-GY; J0360; J0696; J1644; J1940; J2920; J2930; J3475; J7030

== ENCOUNTER 2019-05-05 08:02 | Day surgery (SDC) | payer MEDICARE ==
[~2019-05-05 08:02] MED LIST changes: +LIDOCAINE (2%) 20 MG/1 ML VIAL 20 ML MDV INFILTRATI ONE; +fentaNYL 100 MCG/2 ML INJ ONE; +propofoL 200 MG/20 ML VIAL IV ONE
--- NOTE | 2019-05-05 08:57 | Anesthesia Consultation ---
Anesthesia Consult and Med Hx Date of service: 05/05/19 - Airway Anesthetic Teeth Evaluation: Dentures ROM Head & Neck: Adequate Mental/Hyoid Distance: Adequate Mallampati Class: Class II Intubation Access Assessment: Probably Good - Pulmonary Exam CTA: Yes - Pre-Operative Health Status ASA Pre-Surgery Classification: ASA3 Proposed Anesthetic Plan: MAC - Pulmonary Hx Smoking: Yes Hx Asthma: Yes SOB: Yes COPD: Yes Home Oxygen Therapy: No Hx Sleep Apnea: No - Cardiovascular System Hx Hypertension: Yes Hx Coronary Artery Disease: Yes Hx Heart Attack/AMI: Yes Hx Angina: No Hx Percutaneous Transluminal Coronary Angioplasty (PTCA): Yes (x2 2010) Hx Cardia Arrhythmia: Yes (sick sinus syndrome) Hx Pacemaker: Yes - Central Nervous System Hx Neuromuscular Disorder: No CVA: No Hx Psychiatric Problems: No - Gastrointestinal Hx Gastroesophageal Reflux Disease: Yes - Endocrine Hx Renal Disease: Yes Hx Liver Disease: No Hx Insulin Dependent Diabetes: No Hx Non-Insulin Dependent Diabetes: No Hx Thyroid Disease: No - Hematic Hx Anemia: Yes - Other Systems Hx Alcohol Use: No Hx Substance Use: No Hx Obesity: Yes (BMI- 38.2) - Additional Comments Anesthesia Medical History Comments: Patient denied previous anesthesia relayed complications
--- NOTE | 2019-05-05 09:04 | Anesthesia Day of Surgery ---
Anesthesia Day of Surgery - Day of Surgery Patient Examined: Yes Patient H&P Reviewed: Yes Patient is NPO: Yes Cardiac Clearance: No Pulmonary Clearance: No
--- NOTE | 2019-05-05 11:10 | Short Stay Summary ---
Short Stay Documentation Date of service: 05/05/19 Narrative H&P: The patient presents for therapeutic EGD and dilation for progressive dysphagia - History Past Medical History: arrhythmia (Debibrillator), anemia, COPD Past Surgical History: cholecystectomy, hysterectomy, Other (pacemaker) Social history: lives with family, smoking (Recently quit 2 months ago), no alcohol abuse - Allergies and Medications Current Medications: Allergies amoxicillin [From Augmentin] Allergy (Intermediate, Verified 05/05/19 08:52) Itching citalopram [From Celexa] Allergy (Intermediate, Verified 05/05/19 08:52) Rash HEART RACES clavulanic acid [From Augmentin] Allergy (Intermediate, Verified 05/05/19 08:52) Itching codeine Allergy (Verified 07/30/13 11:29) Itching hydrocodone bitartrate [From Vicodin] Allergy (Verified 08/25/13 08:35) Itching iodine Allergy (Verified 02/19/17 11:20) Itching iron Allergy (Verified 07/30/13 11:28) Itching Home Medications Medication Instructions Recorded Confirmed Last Taken Type Albuterol Sulfate [Ventolin HFA] 2 each IH QID 07/30/13 05/05/19 05/04/19 History Aspirin EC [Halfprin EC] 81 mg PO BID 07/30/13 05/05/19 05/04/19 History Fluticasone/Salmeterol [Advair 1 each INHALATION PRN 07/30/13 05/05/19 05/04/19 History Diskus 250-50 mcg] Isosorbide Mononitrate [Isosorbide 30 mg PO DAILY 07/30/13 05/05/19 05/05/19 History Mononitrate ER] Nitroglycerin [Nitrostat] 0.4 mg SL PRN PRN 07/30/13 05/05/19 03/16/13 History Rosuvastatin (Nf) [Crestor] 5 mg PO DAILY 07/30/13 05/05/19 05/04/19 History carvediloL [Coreg] 6.25 mg PO BID 07/30/13 05/05/19 05/05/19 History hydrALAZINE [Apresoline TAB] 50 mg PO TID 03/28/19 05/05/19 05/05/19 History Obdulia-D 24 Hour Tablet 180 mg PO DAILY 05/05/19 05/05/19 05/04/19 History Miralax 1 applicatio PO BID 05/05/19 05/05/19 05/04/19 History Pepcid 20 mg PO DAILY 05/05/19 05/05/19 05/04/19 History Potassium Citrate ER 20 meq PO BID 05/05/19 05/05/19 05/04/19 History Vitamin D3 50 mg PO DAILY 05/05/19 05/05/19 05/04/19 History traMADoL 50 - 100 mg PO QID 05/05/19 05/05/19 05/04/19 History Active Medications Sodium Chloride (Nacl 0.9% 1000 Ml) 1,000 mls @ 50 mls/hr IV DIRECT [facility] Last Admin: 05/05/19 09:03 Dose: 50 mls/hr Documented by: - Physical exam General appearance: no acute distress, well-nourished Integumentary: no growths, no abnormal pigmentation HEENT: Atraumatic, PERRLA, EOMI, Mucous membr. moist/pink Lungs: Clear to auscultation, Normal air movement Breasts: deferred Heart: Regular rate, Normal S1, Normal S2, No murmurs Gastrointestinal: normoactive bowel sounds, no tenderness, no distended, no masses, no guarding, no organomegaly, no obese Female Genitourinary: deferred Rectal Exam: deferred Extremities: no ischemia, pulses intact, pulses symmetrical, No edema, normal temperature, normal color, Full ROM Neurological: Normal gait, Normal speech, Strength at 5/5 X4 ext, Normal tone, Sensation intact, Cranial nerves 3-12 NL - Brief post op/procedure progress note Date of procedure: 05/05/19 Findings: see dictation Estimated blood loss: minimal Pathology: list (stomach antrum biopsies for h.pylori) Specimen disposition: to lab Condition: stable - Disposition Condition at discharge: Good Disposition: - TO HOME OR SELFCARE - Discharge Diagnoses (1) GERD (gastroesophageal reflux disease) Status: Acute (2) Dysphagia Status: Acute Short Stay Discharge Plan Activity: other (no driving for 24 hours) Diet: thickened liquids, advance as tolerated Additional Instructions: Post Sedation D/C Instructions When you return home you may resume your regular diet unless otherwise directed. -Go directly home from the hospital and rest quietly. You may resume normal activities tomorrow. -Do NOT drive, return to work, operate any machinery or make any important personal or business decisions today. -Do NOT drink any alcohol or take nerve or sleeping drugs. They add to the effects of the medicine still present in your body. -CLEAR LIQUIDS TODAY, ADVANCE TO SOFT DIET IN AM Follow up with: RUDY MORA MD [Primary Care Provider] - 7 Days
--- NOTE | 2019-05-05 11:16 | Operative Report ---
Operative Report Operative Report: Date of procedure: 05/05/2019 Procedure: Esophagogastroduodenoscopy with antral biopsies for H. pylori and ba lloon dilation of the esophagus from 15 to 18 mm. Preprocedure diagnosis: Progressive dysphagia to solid food and pills Post procedure diagnosis: Peptic stricture of the distal esophagus. Moderately severe erosive antral gastritis. Bile retention. Endoscopist: Dr. Craven Anesthesia: Monitored anesthesia care per anesthesia department Medications: Propofol per anesthesia Estimated blood loss: Minimal After careful discussion of the nature and purpose of the procedure as well as details the technique risks benefits and alternatives consent was obtained. The patient was placed in the left lateral decubitus position and medicated per anesthesia. The tip of the [employer] EQ 570 video scope was passed per orum under direct vision into the esophagus and advanced into the stomach and descending duodenum. The descending duodenum the duodenal bulb and pylorus were symmetrical and normal. The scope was withdrawn into the stomach and the stomach then gently insufflated with air. The antrum revealed multiple punctate erosions and patchy erythema. Biopsies were taken in the prepyloric area for H. pylori testing. The stomach was further insufflated and the scope was then retroflexed and partially withdrawn. Retained bile was noted on the greater curvature of the stomach. The cardia, fundus, and body of the stomach were within normal limits and easily distensible.The scope was then withdrawn in the forward position. The esophagogastric junction was at 38 cm. A mild stricture approximately 3 cm in length was present in the distal esophagus down to the esophagogastric junction. The stricture provided no resistance to passage of the scope. Moderate inflammation was noted around the Z line consistent with acid reflux disease. The esophageal body was otherwise normal throughout. Balloon dilation was performed from 15 mm to 18 mm in size over the course of 2 minutes. Moderate trauma of the strictured area was noted post dilation consistent with dilation effect. The procedure was was well tolerated and the patient was observed in recovery. Impressions: Long peptic stricture of the distal esophagus. Moderate distal esophagitis. Moderately severe erosive antral gastritis. Retained bile. Plan: Advance diet to full liquids and beyond as tolerated today. Continue PPI therapy, pantoprazole 40 mg daily. Await pathology results from antrum. Redilate the esophagus in 2 to 3 months. Electronically signed: Michael Craven MD
[2019-05-05 12:21] VITALS: BP 151/50
== END 2019-05-05 08:03 | disposition home or self-care (01) ==
LOC: GIO 08:02
PROVIDERS: ATTEND Internal Medicine Gastroenterology
DX: R13.10 Dysphagia, unspecified (principal); D64.9 Anemia, unspecified; Z90.49 Acquired absence of other specified parts of digestive tract; Z90.710 Acquired absence of both cervix and uterus; Z95.0 Presence of cardiac pacemaker; J44.9 Chronic obstructive pulmonary disease, unspecified; K22.2 Esophageal obstruction; K31.89 Other diseases of stomach and duodenum; K29.40 Chronic atrophic gastritis without bleeding; Z86.010 Personal history of colon polyps; I25.10 Atherosclerotic heart disease of native coronary artery without angina pectoris; Z87.442 Personal history of urinary calculi; Z88.6 Allergy status to analgesic agent; Z88.5 Allergy status to narcotic agent; Z91.041 Radiographic dye allergy status; Z79.899 Other long term (current) drug therapy; Z79.82 Long term (current) use of aspirin; F17.210 Nicotine dependence, cigarettes, uncomplicated; I10 Essential (primary) hypertension; Z98.41 Cataract extraction status, right eye; Z98.42 Cataract extraction status, left eye; E78.00 Pure hypercholesterolemia, unspecified; E66.9 Obesity, unspecified; Z68.39 Body mass index [BMI] 39.0-39.9, adult; Z98.51 Tubal ligation status; Z98.890 Other specified postprocedural states; K21.0 Gastro-esophageal reflux disease with esophagitis; K30 Functional dyspepsia
CPT/HCPCS: 43239; 43249; 88305; 88342; C1726; C1769; J2704; J3010; J7030

== ENCOUNTER 2020-06-14 06:48 | Day surgery (SDC) | payer MEDICARE ==
[2020-06-14] MEDS ORDERED: SODIUM CHLORIDE 0.9% 1000 ML 1,000 ML IV SCH (07:00)
--- NOTE | 2020-06-14 08:07 | Anesthesia Day of Surgery ---
Anesthesia Day of Surgery - Day of Surgery Patient Examined: Yes Patient H&P Reviewed: Yes Patient is NPO: Yes
--- NOTE | 2020-06-14 08:10 | Anesthesia Consultation ---
Anesthesia Consult and Med Hx Date of service: 06/14/20 - Airway Anesthetic Teeth Evaluation: Edentulous ROM Head & Neck: Adequate Mental/Hyoid Distance: Adequate Mallampati Class: Class II Intubation Access Assessment: Probably Good - Pre-Operative Health Status ASA Pre-Surgery Classification: ASA3 Proposed Anesthetic Plan: MAC - Pulmonary Hx Smoking: Yes (30pk yr hx) Hx Asthma: Yes Hx Respiratory Symptoms: Yes SOB: Yes COPD: Yes Home Oxygen Therapy: Yes Hx Sleep Apnea: No - Cardiovascular System Hx Hypertension: Yes Hx Coronary Artery Disease: Yes Hx Heart Attack/AMI: Yes Hx Angina: No Hx Percutaneous Transluminal Coronary Angioplasty (PTCA): Yes (x2 2010) Hx Cardia Arrhythmia: Yes (sick sinus syndrome) Hx Pacemaker: Yes - Central Nervous System Hx Neuromuscular Disorder: No CVA: No Hx Psychiatric Problems: No - Gastrointestinal Hx Gastroesophageal Reflux Disease: Yes - Endocrine Hx Renal Disease: Yes (CKD) Hx Liver Disease: No Hx Insulin Dependent Diabetes: No Hx Non-Insulin Dependent Diabetes: No Hx Thyroid Disease: No - Hematic Hx Anemia: Yes - Other Systems Hx Alcohol Use: No Hx Substance Use: No Hx Obesity: Yes (BMI- 38.2) - Additional Comments Anesthesia Medical History Comments: Here [id number]
[2020-06-14] MEDS ORDERED: ONDANSETRON 4 MG/2 ML INJ ONE (09:10)
[2020-06-14] MEDS ORDERED: LIDOCAINE MPF (2%) 20 MG/1 ML VIAL 5 ML ONE (09:10)
[2020-06-14] MEDS ORDERED: propofoL 200 MG/20 ML VIAL IV ONE (09:12)
[2020-06-14] MEDS ORDERED: fentaNYL 100 MCG/2 ML INJ ONE (09:12)
--- NOTE | 2020-06-14 09:45 | Short Stay Summary ---
Short Stay Documentation Date of service: 06/14/20 - History H&P: obtained from office - Allergies and Medications Current Medications: Allergies amoxicillin [From Augmentin] Allergy (Intermediate, Verified 05/05/19 08:52) Itching citalopram [From Celexa] Allergy (Intermediate, Verified 05/05/19 08:52) Rash HEART RACES clavulanic acid [From Augmentin] Allergy (Intermediate, Verified 05/05/19 08:52) Itching codeine Allergy (Verified 07/30/13 11:29) Itching hydrocodone bitartrate [From Vicodin] Allergy (Verified 08/25/13 08:35) Itching iodine Allergy (Verified 02/19/17 11:20) Itching iron Allergy (Verified 07/30/13 11:28) Itching Home Medications Medication Instructions Recorded Confirmed Last Taken Type Albuterol Sulfate [Ventolin HFA] 2 each IH QID 07/30/13 05/05/19 05/04/19 History Aspirin EC [Halfprin EC] 81 mg PO BID 07/30/13 06/13/20 05/04/19 History Fluticasone/Salmeterol [Advair 1 each INHALATION PRN 07/30/13 05/05/19 05/04/19 History Diskus 250-50 mcg] Isosorbide Mononitrate [Isosorbide 30 mg PO DAILY 07/30/13 06/13/20 05/05/19 History Mononitrate ER] Nitroglycerin [Nitrostat] 0.4 mg SL PRN PRN 07/30/13 06/13/20 03/16/13 History Rosuvastatin (Nf) [Crestor] 5 mg PO DAILY 07/30/13 06/13/20 05/04/19 History carvediloL [Coreg] 6.25 mg PO BID 07/30/13 06/13/20 05/05/19 History hydrALAZINE [Apresoline TAB] 50 mg PO TID 03/28/19 06/13/20 05/05/19 History Obdulia-D 24 Hour Tablet 180 mg PO DAILY 05/05/19 05/05/19 05/04/19 History Miralax 1 applicatio PO BID 05/05/19 06/13/20 05/04/19 History Pepcid 40 mg PO DAILY 05/05/19 06/13/20 05/04/19 History Potassium Citrate ER 20 meq PO BID 05/05/19 05/05/19 05/04/19 History Vitamin D3 50 mg PO DAILY 05/05/19 06/13/20 05/04/19 History traMADoL 50 - 100 mg PO QID 05/05/19 06/13/20 05/04/19 History Active Medications Sodium Chloride (Nacl 0.9% 1000 Ml) 1,000 mls @ 50 mls/hr IV DIRECT JAC - Brief post op/procedure progress note Date of procedure: 06/14/20 Findings: see dictation Estimated blood loss: minimal Pathology: list (antral biopsies for h pylori) Specimen disposition: to lab Condition: stable - Disposition Condition at discharge: Good Disposition: DC-01 TO HOME OR SELFCARE - Discharge Diagnoses (1) Dysphagia Status: Acute (2) GERD (gastroesophageal reflux disease) Status: Acute Short Stay Discharge Plan Activity: other (No driving for 24 hours) Weight Bearing Status: Weight Bear as Tolerated Diet: other (soft mechanical diet) Follow up with: HENRIETTA SANTOS MD [Primary Care Provider] - 7 Days
--- NOTE | 2020-06-14 09:49 | Operative Report ---
Operative Report Operative Report: Date of procedure: 06/14/2020 Procedure: Esophagogastroduodenoscopy with antral biopsies for H. pylori and eso phageal dilation by [id number] balloon. Preprocedure diagnosis: Dysphagia to solid foods. GERD. Post procedure diagnosis: Peptic stricture, hiatus hernia. Antral gastritis with bile retention. Endoscopist: Dr. Craven Anesthesia: Monitored anesthesia care per anesthesia department Medications: Propofol per anesthesia. Estimated blood loss: 0. After careful discussion of the nature and purpose of the procedure as well as details the technique risks benefits and alternatives consent was obtained. The patient was placed in the left lateral decubitus position and medicated per anesthesia. The tip of the [employer] EQ 570 video scope was passed per orum under direct vision into the esophagus and advanced into the stomach and descending duodenum. The descending duodenum the duodenal bulb and pylorus were symmetrical and normal. The scope was withdrawn into the stomach and the stomach then gently insufflated with air. The antrum revealed mild diffuse erythema and some bile retention. Biopsies were taken in the prepyloric area and along the lesser curvature for H. pylori testing. The stomach was further insufflated and the scope was then retroflexed and partially withdrawn. The cardia, fundus, and body of the stomach were within normal limits and easily distensible.The scope was then withdrawn in the forward position. The esophagogastric junction was at 38 cm. A small hiatus hernia was present. A peptic stricture was present at the esophagogastric junction which was not restrictive to passage of the scope. The stricture was circumferential. The esophageal body was normal throughout. Balloon dilation over the esophagogastric junction was performed. A 15 to 18 mm [id number] balloon was used over 1-1/2 minutes. Reinspection of the area revealed mild trauma and an improved appearance to the stricture. The procedure was was well tolerated and the patient was observed in recovery. Impressions: #1. Peptic stricture at the EG junction. Status post dilation. #2 hiatus hernia. #3 retained bile #4 gastritis. Plan: Redilate as needed. Await pathology for possible H. pylori infection versus bile gastritis. Electronically signed: Michael Craven MD
[2020-06-14 10:16] VITALS: BP 150/50
== END 2020-06-14 10:35 | disposition home or self-care (01) ==
LOC: GIO 06:48
PROVIDERS: ATTEND Internal Medicine Gastroenterology
DX: R13.10 Dysphagia, unspecified (principal); K21.9 Gastro-esophageal reflux disease without esophagitis; K22.2 Esophageal obstruction; K44.9 Diaphragmatic hernia without obstruction or gangrene; K29.50 Unspecified chronic gastritis without bleeding; I12.9 Hypertensive chronic kidney disease with stage 1 through stage 4 chronic kidney disease, or unspecified chronic kidney disease; N18.9 Chronic kidney disease, unspecified; I25.10 Atherosclerotic heart disease of native coronary artery without angina pectoris; E78.00 Pure hypercholesterolemia, unspecified; J44.9 Chronic obstructive pulmonary disease, unspecified; E66.9 Obesity, unspecified; Z98.51 Tubal ligation status; Z88.5 Allergy status to narcotic agent; Z91.041 Radiographic dye allergy status; Z88.8 Allergy status to other drugs, medicaments and biological substances; Z79.899 Other long term (current) drug therapy; Z98.41 Cataract extraction status, right eye; Z98.42 Cataract extraction status, left eye; Z95.0 Presence of cardiac pacemaker; Z90.49 Acquired absence of other specified parts of digestive tract; Z87.442 Personal history of urinary calculi; Z98.890 Other specified postprocedural states; Z68.37 Body mass index [BMI] 37.0-37.9, adult
CPT/HCPCS: 43239; 43249; 88305; 88342; C1726; J2405; J2704; J3010; J7030

== ENCOUNTER 2021-05-23 22:11 | Emergency (ER) | payer MEDICARE ==
--- NOTE | 2021-05-23 23:29 | XRay Report ---
Chest 2 views INDICATION: Dyspnea IMPRESSION: Prominent increased pulmonary venous prominence noted bilaterally unchanged from 02/19/2017 . Cardiomegaly has worsened in the interim. No large pleural effusion. Signer Name: Tomás Carter MD Signed: 05/23/2021 11:25 PM Workstation Name: [email or web address]
[2021-05-23] MEDS ORDERED: predniSONE 20 MG TAB PO ONE (23:33)
[2021-05-23] MEDS ORDERED: METOCLOPRAMIDE 10 MG TAB PO ONE (23:33)
[2021-05-23] MEDS ORDERED: diphenhydrAMINE 25 MG/10 ML ORAL LIQUID PO ONE (23:33)
[2021-05-24 00:01] LABS: Basophils # (Auto) 0.1 K/mm3 (0.0-0.1); Basophils % (Auto) 0.8 % (0.0-1.8); Eosinophils # (Auto) 0.1 K/mm3 (0.0-0.4); Eosinophils % (Auto) 0.6 % (0.0-4.3); Hematocrit 39.5 % (30.3-42.9); Lymphocytes # (Auto) 2.3 K/mm3 (1.2-5.4); Lymphocytes % (Auto) 21.6 % (13.4-35.0); Mean Corpuscular HGB Conc 33 % (30-34); Mean Corpuscular Volume 99 fl (79-97); Monocytes % (Auto) 9.1 % (0.0-7.3); Platelet Count 271 K/mm3 (140-440); Red Blood Count 3.99 M/mm3 (3.65-5.03)
[2021-05-24 00:12] LABS: Alanine Aminotransferase 7 units/L (7-56); BUN/Creatinine Ratio 18; Blood Urea Nitrogen 16 mg/dL (7-17); Calcium 9.7 mg/dL (8.4-10.2); Hemolysis Index 7
--- NOTE | 2021-05-24 00:57 | Cat Scan Report ---
CT head without contrast INDICATION : Headache and dizziness TECHNIQUE: Axial imaging performed from the skull apex through the skull base without the use of con trast. All CT examinations performed at this facility utilize dose modulation, iterative reconstruct ion or weight-based dosing, when appropriate, to reduce radiation dose to as low as reasonably achiev able. COMPARISON: None FINDINGS: Exam is limited secondary to motion artifact. No acute intracranial hemorrhage. There is pe riventricular height matter hypodensities that may represent microangiopathic changes. No extra-axial collection is identified. The skull is intact. The paranasal sinuses are grossly clear. The orbits a re intact. IMPRESSION: No acute intracranial pathology within the limits of the exam. Signer Name: Tomás Carter MD Signed: 05/24/2021 12:53 AM Workstation Name: [email or web address]
--- NOTE | 2021-05-24 00:59 | Cat Scan Report ---
CT cervical spine without contrast INDICATION: Neck pain following injury TECHNIQUE: Axial imaging performed through the cervical spine without the use of contrast. Sagittal and coronal reconstructed images were also reviewed. All CT scans at this location are performed us ing CT dose reduction for ALARA by means of automated exposure control. COMPARISON: None FINDINGS: Alignment: Spinal alignment is normal. Bones: There is no acute osseous abnormality. Moderate osteopenia. 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 There is multilevel left-sided neural foraminal narrowing specifically at le ft C3-C4, C4-C5 and C5-C6. Soft tissues: No acute or significant incidental soft tissue abnormality. IMPRESSION: No acute abnormality. Signer Name: Tomás Carter MD Signed: 05/24/2021 12:55 AM Workstation Name: [email or web address]
--- NOTE | 2021-05-24 01:49 | Emergency Department Report ---
ED Headache HPI - General Chief Complaint: Neck Pain/Injury Stated Complaint: CHEST AND NECK PAIN Time Seen by Provider: 05/24/21 01:29 Source: patient Exam Limitations: no limitations - History of Present Illness Initial Comments: Patient is an 80-year-old female presented ED with complaint of posterior headache beginning yesterday. Pain radiates down her neck into her shoulders. She denies any fever, chills or focal weakness. No recent trauma. Timing/Duration: other (Yesterday) Quality: moderate Recent Head Trauma: no recent headache/trauma Modifying Factors: improves with: other (None) Associated Symptoms: denies symptoms Allergies/Adverse Reactions: Allergies amoxicillin [From Augmentin] Allergy (Intermediate, Verified 04/07/21 11:09) Itching citalopram [From Celexa] Allergy (Intermediate, Verified 04/07/21 11:09) Rash HEART RACES clavulanic acid [From Augmentin] Allergy (Intermediate, Verified 04/07/21 11:09) Itching acetaminophen [From Vicodin] Allergy (Verified 04/07/21 11:09) Unknown codeine Allergy (Verified 04/07/21 11:09) Itching hydrocodone [From Vicodin] Allergy (Verified 04/07/21 11:09) Unknown hydrocodone bitartrate [From Vicodin] Allergy (Verified 04/07/21 11:09) Itching iodine Allergy (Verified 04/07/21 11:09) Itching iron Allergy (Verified 04/07/21 11:09) Itching omeprazole Allergy (Verified 04/07/21 11:09) Unknown Home Medications: Ambulatory Orders Albuterol Sulfate [Ventolin HFA] 2 each IH QID 07/30/13 Aspirin EC [Halfprin EC] 81 mg PO BID 07/30/13 Fluticasone/Salmeterol [Advair Diskus 250-50 mcg] 1 each INHALATION PRN 07/30/13 Isosorbide Mononitrate [Isosorbide Mononitrate ER] 30 mg PO DAILY 07/30/13 Nitroglycerin [Nitrostat] 0.4 mg SL PRN PRN 07/30/13 Rosuvastatin (Nf) [Crestor] 5 mg PO DAILY 07/30/13 carvediloL [Coreg] 6.25 mg PO BID 07/30/13 hydrALAZINE [Apresoline TAB] 50 mg PO TID 03/28/19 Obdulia-D 24 Hour Tablet 180 mg PO DAILY 05/05/19 Miralax 1 applicatio PO BID 05/05/19 Pepcid 40 mg PO DAILY 05/05/19 Potassium Citrate ER 20 meq PO BID 05/05/19 Vitamin D3 50 mg PO DAILY 05/05/19 traMADoL 50 - 100 mg PO QID 05/05/19 Albuterol Sulfate [Albuterol 0.63% NEBS] 0.63 mg IH TID PRN 07/28/19 Aspirin [Adult Aspirin] 81 mg PO BID 07/28/19 Cholecalciferol (Vitamin D3) [Vitamin D3] 2,000 unit PO DAILY 07/28/19 Famotidine [Pepcid] 40 mg PO QHS 07/28/19 Fluticasone/Salmeterol(Nf) [Advair HFA 115-21 mcg] 1 puff IH DAILY 07/28/19 Hydralazine HCl 50 mg PO TID 07/28/19 ISOSORBIDE MONOnitrate [Imdur ER] 30 mg PO DAILY 07/28/19 Nitroglycerin (Nf) [Nitrostat] 0.3 mg SL PRN 07/28/19 Pantoprazole [Protonix TAB] 40 mg PO QDAY 07/28/19 Polyethylene Glycol 3350 [Miralax] 255 gm PO PRN PRN 07/28/19 Potassium Citrate [Potassium Citrate ER] 10 meq PO DAILY 07/28/19 Rosuvastatin (Nf) [Crestor] 5 mg PO QHS 07/28/19 Rosuvastatin (Nf) [Crestor] 5 mg PO QHS 07/28/19 amLODIPine 5 mg PO DAILY 07/28/19 carvediloL [Coreg] 1 tab PO BID 07/28/19 raNITIdine HCl [Zantac] 150 mg PO DAILY 07/28/19 traMADoL [Ultram 50 MG tab] 50 mg PO PRN 07/28/19 ED Review of Systems ROS: Stated complaint: CHEST AND NECK PAIN Other details as noted in HPI Constitutional: no symptoms reported Respiratory: no symptoms reported Cardiovascular: denies: chest pain, palpitations Gastrointestinal: denies: abdominal pain, nausea, diarrhea Genitourinary: denies: urgency, dysuria, discharge Skin: denies: rash, lesions Neurological: denies: headache, weakness, paresthesias Psychiatric: denies: anxiety, depression Hematological/Lymphatic: denies: easy bleeding, easy bruising ED Past Medical Hx - Past Medical History Hx Hypertension: Yes Hx Heart Attack/AMI: Yes Hx GERD: Yes Hx Liver Disease: No Hx Renal Disease: No Hx Arthritis: Yes Hx Kidney Stones: Yes (X4) Hx Asthma: Yes Hx COPD: Yes Additional medical history: high cholosterol - Surgical History Hx Coronary Stent: Yes (X2) Hx Pacemaker: Yes Hx Internal Defibrillator: No Hx Cholecystectomy: Yes Hx Appendectomy: Yes Additional Surgical History: pacemaker 2012, stents x 2 10/2010. eye implants - Social History Smoking Status: Former Smoker - Medications Home Medications: Home Medications Medication Instructions Recorded Confirmed Last Taken Type Albuterol Sulfate [Ventolin HFA] 2 each IH QID 07/30/13 05/05/19 05/04/19 History Aspirin EC [Halfprin EC] 81 mg PO BID 07/30/13 06/13/20 05/04/19 History Fluticasone/Salmeterol [Advair 1 each INHALATION PRN 07/30/13 05/05/19 05/04/19 History Diskus 250-50 mcg] Isosorbide Mononitrate [Isosorbide 30 mg PO DAILY 07/30/13 06/13/20 05/05/19 History Mononitrate ER] Nitroglycerin [Nitrostat] 0.4 mg SL PRN PRN 07/30/13 06/13/20 03/16/13 History Rosuvastatin (Nf) [Crestor] 5 mg PO DAILY 07/30/13 06/13/20 05/04/19 History carvediloL [Coreg] 6.25 mg PO BID 07/30/13 06/13/20 05/05/19 History hydrALAZINE [Apresoline TAB] 50 mg PO TID 03/28/19 06/13/20 05/05/19 History Obdulia-D 24 Hour Tablet 180 mg PO DAILY 05/05/19 05/05/19 05/04/19 History Miralax 1 applicatio PO BID 05/05/19 06/13/20 05/04/19 History Pepcid 40 mg PO DAILY 05/05/19 06/13/20 05/04/19 History Potassium Citrate ER 20 meq PO BID 05/05/19 05/05/19 05/04/19 History Vitamin D3 50 mg PO DAILY 05/05/19 06/13/20 05/04/19 History traMADoL 50 - 100 mg PO QID 05/05/19 06/13/20 05/04/19 History Albuterol Sulfate [Albuterol 0.63% 0.63 mg IH TID PRN 07/28/19 07/28/19 07/26/19 History NEBS] Aspirin [Adult Aspirin] 81 mg PO BID 07/28/19 07/28/19 07/24/19 History Cholecalciferol (Vitamin D3) 2,000 unit PO DAILY 07/28/19 07/28/19 Unknown History [Vitamin D3] Famotidine [Pepcid] 40 mg PO QHS 07/28/19 07/28/19 07/27/19 History Fluticasone/Salmeterol(Nf) [Advair 1 puff IH DAILY 07/28/19 07/28/19 07/27/19 History HFA 115-21 mcg] Hydralazine HCl 50 mg PO TID 07/28/19 07/28/19 07/27/19 History ISOSORBIDE MONOnitrate [Imdur ER] 30 mg PO DAILY 07/28/19 07/28/19 07/28/19 History Nitroglycerin (Nf) [Nitrostat] 0.3 mg SL PRN 07/28/19 07/28/19 07/13/19 History Pantoprazole [Protonix TAB] 40 mg PO QDAY 07/28/19 07/28/19 07/27/19 History Polyethylene Glycol 3350 [Miralax] 255 gm PO PRN PRN 07/28/19 07/28/19 07/21/19 History Potassium Citrate [Potassium 10 meq PO DAILY 07/28/19 07/28/19 07/27/19 History Citrate ER] Rosuvastatin (Nf) [Crestor] 5 mg PO QHS 07/28/19 07/28/19 07/27/19 History Rosuvastatin (Nf) [Crestor] 5 mg PO QHS 07/28/19 07/28/19 07/27/19 History amLODIPine 5 mg PO DAILY 07/28/19 07/28/19 07/28/19 History carvediloL [Coreg] 1 tab PO BID 07/28/19 07/28/19 07/28/19 07:30 History raNITIdine HCl [Zantac] 150 mg PO DAILY 07/28/19 07/28/19 07/27/19 History traMADoL [Ultram 50 MG tab] 50 mg PO PRN 07/28/19 07/28/19 07/26/19 History ED Physical Exam - General Limitations: No Limitations - Head Head exam: Present: atraumatic, normocephalic - Eye Eye exam: Present: normal appearance - Neck Neck exam: Absent: tenderness, lymphadenopathy - Respiratory Respiratory exam: Present: normal lung sounds bilaterally. Absent: respiratory distress - Cardiovascular Cardiovascular Exam: Present: regular rate, normal rhythm. Absent: systolic murmur, diastolic murmur, rubs, gallop - GI/Abdominal GI/Abdominal exam: Present: soft, normal bowel sounds - Rectal Rectal exam: Present: deferred - Neurological Exam Neurological exam: Present: alert, oriented X3, CN II-XII intact - Psychiatric Psychiatric exam: Present: normal affect, normal mood - Skin Skin exam: Present: warm, dry, intact, normal color ED Medical Decision Making - Lab Data Result diagrams: 05/23/21 23:27 05/23/21 23:27 - Medical Decision Making Labs and CT head and neck unremarkable. Patient given Benadryl, Reglan and prednisone. On reassessment her symptoms are improved. She is stable for discharge home with return precautions Critical care attestation.: If time is entered above; I have spent that time in minutes in the direct care of this critically ill patient, excluding procedure time. ED Disposition Clinical Impression: Occipital headache Disposition: 01 HOME / SELF CARE / HOMELESS Is pt being admited?: No Does the pt Need Aspirin: No Condition: Stable Instructions: General Headache Without Cause Referrals: KATHARINE WEINER MD [Primary Care Provider] - 3-5 Days Time of Disposition: 01:48 Print Language: NIUEAN
[2021-05-24 02:06] VITALS: BP 147/83
--- NOTE | 2021-05-25 20:14 | Electrocardiograph Report ---
[facility] Test Date: 2021-05-23 Test Time: 23:08:26 Pat Name: ANNETTA CRENSHAW Department: Room: Gender: F National Account Manager: TACO GALINDO : 1940 Requested By: SUSIE HANSON Order Number: [id number] Reading MD: Willam Chauhan Measurements Intervals [place] Rate: 63 P: NM: 210 QRS: -13 QRSD: 103 T: 90 QT: 433 QTc: 445 Interpretive Statements Atrial-paced rhythm [place] QRS complexes with left ventricular hypertrophy No previous ECG available for comparison Electronically Signed On 05-25-2021 20:13:55 EDT by Willam Chauhan
== END 2021-05-24 02:05 | disposition home or self-care (01) ==
LOC: ED 22:11
DX: G44.89 Other headache syndrome (principal); I10 Essential (primary) hypertension; I21.9 Acute myocardial infarction, unspecified; K21.9 Gastro-esophageal reflux disease without esophagitis; M19.90 Unspecified osteoarthritis, unspecified site; J44.9 Chronic obstructive pulmonary disease, unspecified; Z90.49 Acquired absence of other specified parts of digestive tract; Z98.890 Other specified postprocedural states; Z79.899 Other long term (current) drug therapy; Z87.891 Personal history of nicotine dependence; Z88.6 Allergy status to analgesic agent; Z88.1 Allergy status to other antibiotic agents; Z91.09 Other allergy status, other than to drugs and biological substances
CPT/HCPCS: 36415; 70450; 71046; 72125; 80053; 84484; 85025; 93005; 99284; Q0163